=== PATIENT | male | born 1990 | race African-American/Black ===

== ENCOUNTER 2017-09-13 19:24 | Emergency (ER) | payer SELFPAY ==
[~2017-09-13] VITALS: Ht 188 cm; Wt 79.5 kg
[2017-09-13 19:35] VITALS: BP 126/65
== END 2017-09-14 02:23 | disposition left against medical advice (07) ==
LOC: ER 21:12
DX: L02.31 Cutaneous abscess of buttock (principal); Z53.21 Procedure and treatment not carried out due to patient leaving prior to being seen by health care provider

== ENCOUNTER 2017-09-14 19:47 | Emergency (ER) | payer SELFPAY ==
[~2017-09-14] VITALS: Ht 190.5 cm; Wt 80.0 kg
[2017-09-15] MEDS ORDERED: BACITRACIN ZINC OINT UDPKT TOP ONE (03:45)
[2017-09-15] MEDS ORDERED: LIDOCAINE HCL 1% 20ML VIAL (Pyxis) INJ MC ONE (03:45)
[2017-09-15 04:51] VITALS: BP 118/91
== END 2017-09-15 04:58 | disposition home or self-care (01) ==
LOC: ER 19:47
DX: L02.31 Cutaneous abscess of buttock (principal); F12.10 Cannabis abuse, uncomplicated; J45.909 Unspecified asthma, uncomplicated; F17.200 Nicotine dependence, unspecified, uncomplicated
CPT/HCPCS: 10060; 99283; J3490; Z7610

== ENCOUNTER 2017-09-17 21:56 | Emergency (ER) | payer SELFPAY | END 2017-09-18 01:14 | disposition left against medical advice (07) | LOC: ER 21:56 | DX: Z48.00 Encounter for change or removal of nonsurgical wound dressing (principal); Z53.21 Procedure and treatment not carried out due to patient leaving prior to being seen by health care provider ==